=== PATIENT | female | born 1990 | race Caucasian/White ===

== ENCOUNTER → 2017-05-29 | Outpatient (CLI) | payer OTHER ==
[~2017-05-29] MED LIST: PROHANCE 279.3MG/ML 15ML VIAL (A9576) As Ordered
== END ==
LOC: M RAD 14:46
DX: N85.8 Other specified noninflammatory disorders of uterus (principal)
CPT/HCPCS: A9576

== ENCOUNTER 2018-04-22 07:21 | Inpatient (IN) | payer OTHER ==
[2018-04-22] VITALS (17 sets, daily range): BP systolic 98–134; BP diastolic 53–76
[~2018-04-22] VITALS: Ht 170.2 cm; Wt 80.8 kg
[2018-04-22] MEDS ORDERED: PRENTAB9 PO (07:46)
[2018-04-22] MEDS ORDERED: LACTATED RINGER'S 1000 ML IV STA (08:24)
[2018-04-22 09:02] LABS: HEMATOCRIT 36.7 % (36.0-47.0); HEMOGLOBIN 12.7 g/dl (12.0-15.5); MEAN CORPUSCULAR HEMOGLOBIN 32.2 pg (27.0-33.0); MEAN CORPUSCULAR HGB CONC 34.6 g/dl (32.0-36.5); MEAN CORPUSCULAR VOLUME 92.9 fl (80.0-96.0); PLATELET COUNT, AUTOMATED 222 10^3/uL (150-450); RED BLOOD COUNT 3.95 10^6/uL (4.00-5.40); WHITE BLOOD COUNT 9.5 10^3/uL (4.0-10.0)
[2018-04-22] MEDS: LR 1,000 ML IV SCH ×2 (09:54→17:21)
[2018-04-22] MEDS ORDERED: miSOPROStol 25 MCG 1/4 TAB (S0191) PV ONE (10:15)
--- NOTE | 2018-04-22 10:26 | HPEPDOC ---
Obstetrical History & Physical General Date of Admission Apr 22, 2018 at 07:21 History of Present Illness Augusta is a 27yo with SIUP at 41w1d by lmp c/w 9wk u/s who presents for scheduled IOL for LTG. She has been feeling some ctx, not painful. No LOF. No vaginal bleeding. Good movement. No f/c/n/v. Chief Complaint: Induction of labor Information Provided By: Patient Care Care: Good Care Dating Final EDC: Apr 14, 2018 Final EDC by: LMP, 1st trimester (US) Antepartum Course Diagnos(e)s subseptate uterus Height (inches): 67 Pre- weight (lbs.): 155 Admission Weight (lbs.): 178 Change in Weight (lbs.): 23 Past Medical History Past Obstetrical History : Past Obstetrical History: Multigravida (08/2013 at 41w5d, F, 7lb5oz uncomplicated. 1 early sab 04/2017) LEAD ARCHITECT History: No pertinent history Past Medical History Medical History benign Surgical History: Denies/None Family History Significant Family History: No pertinent family hx Social History Marital Status: Family situation: Spouse/partner home Psychosocial History: No pertinent psych hx * Smoker: non-smoker Alcohol: Denies Drugs: denies Imunizations Tdap status: current Influenza Status: current Allergies Coded Allergies: No Known Allergies (Unverified , 04/22/18) Medications Scheduled Multivitamins/ ( 27-0.8 mg) 1 Tab Tab, 1 TAB PO DAILY Physical Examination Physical Examination GENERAL: Alert and oriented times three. ABDOMEN: Gravid and non-tender to touch. FETUS: Is vertex (VTX) by sterile vaginal examination (SVE) and TAUS EXTREMITIES: No edema. Laboratory Data 24H LABS Laboratory Tests 2 04/22/18 07:40: Serology Scanned Report Hepatitis B Testing 04/22/18 08:47: Nucleated Red Blood Cells % (auto) 0.0 CBC/BMP Laboratory Tests 04/22/18 08:47 Red Blood Count 3.95 L, Mean Corpuscular Volume 92.9, Mean Corpuscular Hemoglobin 32.2, Mean Corpuscular Hemoglobin Concent 34.6, Red Cell Distribution Width 12.5 Pertinent Laboratoy Data Blood Type: O+ RBC Antibody Screen: Negative HIV: Negative Hepatitis B: Negative Hepatitis C: Unknown Rapid Plasma Reagin: Nonreactive Rubella: Immune Varicella: Immune Chlamydia/Gonorrhea: Negative Group B Streptococcus: Negative Glucose Tolerance Test: 118 Anatomy Ultrasound Ultrasound Date: Nov 26, 2017 Placenta Location: Posterior Normal Anatomy: Yes Placenta Previa: No Steroid Therapy Steroid Therapy: No Vaginal Examination Dilation: 4 cm Effacement: 70% Station: -2 Cervical Consistency: Soft Cervical Position: Anterior Presentation: Cephalic presentation Assessment Heart Rate (FHR): 135 Variability: Moderate Accelerations: Positive Decelerations: Late (resolved with repositioning right away) Tocometer Contractions: No Assessment/Plan Assessment Augusta is a 27yo with SIUP at 41w1d by lmp c/w 9wk u/s who presents for scheduled IOL for LTG. Uncomplicated PMhx and PNC, subseptate uterus, prior term . Vitals wnl, benign exam, SCE 4/75/-2, soft/anterior. 25mcg cytotec placed. Cephalic by SCE and TAUS. GBS negative. Cat II FHRT at first, but with repositioning resolved to Cat I FHRT, no ctx. Plan Admit and orient. Weather Clerk and consent. Diet: regular lunch then clear liquids Group B Streptococcus (GBS) negative Labs and intravenous (IV) per unit protocol. Counseled on cytotec, Pitocin and induction of labor (IOL). Lactated Ringers (LR): Bolus 1000 mL, then at 125 mL/hr. Anticipate normal spontaneous delivery () Candidate for epidural if desired MD Rena West Katrina D MD Apr 22, 2018 10:26
[2018-04-22] MEDS ORDERED: OXYTOCIN DRIP 30 UNITS in APPROPRIATE DILUENT 1 EA IV SCH ×2 (16:15→19:07)
--- NOTE | 2018-04-22 17:14 | IPNPDOC ---
Text Note Date of Service The patient was seen on 04/22/18. NOTE Intrapartum Note Pt very uncomfortable now, requesting pain meds. Was in the tub for a while which helped. Vitals wnl, afebrile, visibly uncomfortable with ctx SCE: /-1 Cat I FHRT with +accels, -decels, mod kermit [place]: ctx q2-4min Discussed cannot give stadol now since so close to delivery, but ok for epidural if she can sit still for it Anticipate soon Safe to proceed Dr. Maribel Chase MD VS,Alvarez, I+O VS, Alvarez, I+O Laboratory Tests 04/22/18 08:47 Red Blood Count 3.95 L, Mean Corpuscular Volume 92.9, Mean Corpuscular Hemoglobin 32.2, Mean Corpuscular Hemoglobin Concent 34.6, Red Cell Distribution Width 12.5 Vital Signs Date Time Temp Pulse Resp B/P (MAP) Pulse Ox O2 Delivery O2 Flow Rate FiO2 04/22/18 16:14 98.4 71 18 115/59 (77) Maribel Chase MD Apr 22, 2018 17:14
[2018-04-22] MEDS ORDERED: BUTORPHANOL 2 MG/ML INJ (J0595) IV ONE (17:15)
[2018-04-22] MEDS ORDERED: OXYTOCIN 30 UNITS IN 0.9% NaCl 500ML IV BAG (J2590) As Ordered ONE (17:22)
[2018-04-22] MEDS ORDERED: MEASLES,MUMPS,RUBELLA VACCINE INJ (MMR-II) (90707) SC SCH (19:15)
[2018-04-22] MEDS ORDERED: METHYLERGONOVINE MALEATE 0.2 MG/ML VIAL (J2210) IM ONE (19:15)
[2018-04-22] MEDS ORDERED: ACETAMINOPHEN 500 MG TAB PO PRN (19:15)
[2018-04-22] MEDS ORDERED: RHOGAM 300 MCG (1500 IU) INJ (J2790) IM SCH (19:15)
[2018-04-22] MEDS ORDERED: DIBUCAINE 1% OINTMENT 30GM TOP PRN (19:15)
[2018-04-22] MEDS ORDERED: DOCUSATE SODIUM 100 MG CAP PO PRN (19:15)
--- NOTE | 2018-04-22 19:48 | DNPDOC ---
[facility] Delivery Note Delivery Note DATE OF DELIVERY: 04/22/18 PREDELIVERY DIAGNOSIS: 41wk IOL for LTG POST DELIVERY DIAGNOSIS: Delivered. PROCEDURE: Spontaneous vaginal delivery SOLAR PV INSTALLER: Dr. Maribel Chase MD ANESTHESIA: none ESTIMATED BLOOD LOSS: 350 mL. FINDINGS: 8 pound 6 ounce (3810g) female infant, Score 9/9 DELIVERY SUMMARY: Augusta is a 27yo [id number] s/p uncomplicated at 41wk after undergoing scheduled IOL for LTG, delivering on 04/22/18 at 18:24. She received one dose of 25mcg PV cytotec and progressed to C/C/0, began pushing. AROM performed with pushing, clear. head delivered OA, restituted LEIF. Left anterior shoulder delivered followed by posterior shoulder and corpus. Infant vigorous with spontaneous cry, placed on maternal abdomen, apgars 9/9. After 2 min, cord clamped x2 and cut by FOB. Cord blood obtained for O pos MBT. With uterine massage and traction on the cord, placenta delivered spontaneously and intact with 3 vessel centrally inserted cord. Bimanual uterine massage performed, IV pitocin given per protocol. Patient continued to have brisk bleeding so lower uterine segment sweep performed with only clot retrieved, and 0.2mg methergine given IM. After that, uterus firmed with continued massage and fundus was then firm at u-2cm. Inspection of perineum and vagina revealed a right labial abrasion- one figure of eight using 4-0 vicryl used to reapproximate, it was not bleeding. Total hemostasis noted. Mom and were doing well when I left the room. MD Rena West Katrina D MD Apr 22, 2018 19:48
[2018-04-23] MEDS: IBUPROFEN 800 MG TAB PO PRN ×2 (04:54→14:10)
[2018-04-23 05:47] VITALS: BP 120/68
--- NOTE | 2018-04-23 06:28 | IPNPDOC ---
Progress Note Date of Service: Apr 23, 2018 Day#: 1 Progress Note PPD 1 SUBJECT: Augusta is a 27yo [id number] s/p uncomplicated at 41wk after undergoing scheduled IOL for LTG, delivering on 04/22/18 at 18:24, doing well day # 1. She has been ambulating, voiding spontaneously without issue and tolerating regular diet. Breast feeding without issue. Reports lochia is like a heavy period. Patient is ambulating well. Reports some cramping with . No f/c/n/v/CP/SOB. OBJECTIVE: VITAL SIGNS: Within normal limits, afebrile. Alert and oriented times three. Abdomen: Fundus firm at U-2. Soft, NTTP. Extremities: no pain with palpation of calves ASSESSMENT: Augusta is a 27yo [id number] s/p uncomplicated at 41wk after undergoing scheduled IOL for LTG, delivering on 04/22/18 at 18:24, doing well day # 1. Vitals within normal limits, afebrile, hemodynamically stable with no evidence of infection. PLAN: 1. Routine care 2. Tylenol and Motrin for pain. 3. Encourage breast feeding and ambulation. 4. Regular diet 5. Unsure of desired contraception 6. Possible discharge home tomorrow (or tonight if patient desires and is ok to discharge per despatching and receiving clerk) Dr. Maribel Chase MD VS, I&O, 24H, [facility] Vital Signs/I&O Vital Signs Date Time Temp Pulse Resp B/P (MAP) Pulse Ox O2 Delivery O2 Flow Rate FiO2 04/23/18 05:47 98.9 65 18 120/68 (85) I&O- Last 24 Hours up to 6 AM 04/23/18 06:00 Intake Total 3340 ml Output Total 850 ml Balance 2490 ml Laboratory Data 24H LABS Laboratory Tests 2 04/22/18 07:40: Serology Scanned Report Hepatitis B Testing 04/22/18 08:47: Nucleated Red Blood Cells % (auto) 0.0 CBC/BMP Laboratory Tests 04/22/18 08:47 Red Blood Count 3.95 L, Mean Corpuscular Volume 92.9, Mean Corpuscular Hemoglobin 32.2, Mean Corpuscular Hemoglobin Concent 34.6, Red Cell Distribution Width 12.5 Maribel Chase MD Apr 23, 2018 06:28
[2018-04-23] MEDS: PRENATAL VITAMINS CHEWABLE TABLET PO SCH (10:39)
[2018-04-23 18:00] VITALS: BP 122/68
[2018-04-24] MEDS: IBUPROFEN 800 MG TAB PO PRN (02:09)
--- NOTE | 2018-04-24 05:56 | IPNPDOC ---
Text Note Date of Service The patient was seen on 04/24/18. NOTE PPD2 States feeling well, pain controlled with prescribed meds. Baby bonding and feeding well. No heavy VB. Lochia slowing. Ambulatory. Tolerating PO without issues. Voiding spont. No CP/LP/SOB. VSSAF NAD A&O LE no C/C/E Ut at U-2, firm a/p: Doing well. Cont routine care. D/C today. Sessions VS,Alvarez, I+O VSAlvarez, I+O Vital Signs Date Time Temp Pulse Resp B/P (MAP) Pulse Ox O2 Delivery O2 Flow Rate FiO2 04/23/18 18:00 98.3 63 20 122/68 (86) SESSIONS,ARCELIA Joy MD Apr 24, 2018 05:56
--- NOTE | 2018-04-24 05:58 | DS.PDOC ---
Discharge Summary General Date of Admission Apr 22, 2018 at 07:21 Date of Discharge [id number] Discharge Summary ADMITTING DIAGNOSES: IOL at 41 weeks DISCHARGE DIAGNOSES: Same, HOSPITAL COURSE: Admitted and delivery uncomplicated, . course uncomplicated. DISCHARGE MEDICATIONS: Motrin, Lanolin DISCHARGE INSTRUCTIONS: Nothing in the vagina for 6 weeks. F/U in OBGYN clinic in 6-8 weeks. Sessions Vital Signs/I&Os Vital Signs Date Time Temp Pulse Resp B/P (MAP) Pulse Ox O2 Delivery O2 Flow Rate FiO2 04/23/18 18:00 98.3 63 20 122/68 (86) Discharge Medications Scheduled Multivitamins/ ( 27-0.8 mg) 1 Tab Tab, 1 TAB PO DAILY, (Reported) Allergies Coded Allergies: No Known Allergies (Unverified , 04/22/18) SESSIONS,ARCELIA Joy MD Apr 24, 2018 05:58
[2018-04-24 06:46] VITALS: BP 115/62
[2018-04-24] MEDS: PRENATAL VITAMINS CHEWABLE TABLET PO SCH (07:45)
[2018-04-24] MEDS ORDERED: COLA100C5 PO (08:02)
[2018-04-24] MEDS ORDERED: IBUP-1114 PO (08:02)
[2018-04-24] MEDS ORDERED: MAPA500T2 PO (08:02)
== END 2018-04-24 11:15 | disposition home or self-care (01) | DRG 807 ==
LOC: M LDI 07:21 → M OBS 22:08
PROVIDERS: ADMIT Obstetrics & Gynecology; ATTEND Obstetrics & Gynecology
PROC: 10E0XZZ Delivery of Products of Conception, External Approach (ICD-10-PCS; principal; 2018-04-22)
PROC: 10907ZC Drainage of Amniotic Fluid, Therapeutic from Products of Conception, Via Natural or Artificial Opening (ICD-10-PCS; 2018-04-22)
PROC: 3E0P7GC Introduction of Other Therapeutic Substance into Female Reproductive, Via Natural or Artificial Opening (ICD-10-PCS; 2018-04-22)
DX: O48.0 Post-term pregnancy (principal); Z37.0 Single live birth; Z3A.41 41 weeks gestation of pregnancy